=== PATIENT | male | born 1975 | race African-American/Black ===

== ENCOUNTER 2018-09-03 10:22 | Emergency (ER) | payer OTHER ==
[~2018-09-03] VITALS: Ht 167.6 cm; Wt 68.0 kg
[~2018-09-03 10:22] MED LIST: AUGMENTIN 875-1 EACH PO; FLONASE 0.05%50 MCG NASAL; PREDNISONE 20 M20 MG PO
[2018-09-03 11:36] VITALS: BP 175/126
[2018-09-03] MEDS ORDERED: NAPROSYN500 MG PO (12:27)
[2018-09-03] MEDS ORDERED: DOXYCYCLINE 10100 MG PO (12:27)
== END 2018-09-03 12:45 | disposition home or self-care (01) ==
LOC: ER 10:22
DX: N45.1 Epididymitis (principal); N50.3 Cyst of epididymis; F17.210 Nicotine dependence, cigarettes, uncomplicated; I10 Essential (primary) hypertension

== ENCOUNTER 2018-12-17 12:02 | Emergency (ER) | payer OTHER ==
[~2018-12-17] VITALS: Ht 167.6 cm; Wt 75.8 kg
[~2018-12-17 12:02] MED LIST changes: +DOXYCYCLINE 10100 MG PO; +NAPROSYN500 MG PO
[2018-12-17 12:03] VITALS: BP 203/129
[2018-12-17] MEDS ORDERED: NAPROSYN500 MG PO (12:36)
[2018-12-17] MEDS ORDERED: NORFLEX100 MG PO (12:36)
== END 2018-12-17 12:42 | disposition home or self-care (01) ==
LOC: ER 12:02
DX: S76.112A Strain of left quadriceps muscle, fascia and tendon, initial encounter (principal); S39.012A Strain of muscle, fascia and tendon of lower back, initial encounter; I10 Essential (primary) hypertension; F17.210 Nicotine dependence, cigarettes, uncomplicated; X58.XXXA Exposure to other specified factors, initial encounter; Y93.89 Activity, other specified; Y92.89 Other specified places as the place of occurrence of the external cause; Y99.8 Other external cause status